=== PATIENT | male | born 1960 | race Caucasian/White ===

== ENCOUNTER → 2017-01-19 | Outpatient (CLI) | payer OTHER ==
[~2017-01-19] MED LIST: ALPRAZOLAM0.5 MG PO; BACTRIM D.S. TAB1 EA PO; NEURONTIN 400400 MG PO; NORCO 10-325 T1 EACH PO; PRILOSEC OTC20 MG PO; SPRYCEL100 MG PO; ZESTRIL40 MG PO
== END ==
LOC: RAD 08:56
DX: M54.2 Cervicalgia (principal); M54.5 Low back pain; M47.814 Spondylosis without myelopathy or radiculopathy, thoracic region; M47.14 Other spondylosis with myelopathy, thoracic region; M47.816 Spondylosis without myelopathy or radiculopathy, lumbar region; M47.812 Spondylosis without myelopathy or radiculopathy, cervical region
CPT/HCPCS: 72050; 72072; 72110

== ENCOUNTER 2017-03-01 21:30 | Inpatient (IN) | payer OTHER ==
[~2017-03-01 21:30] MED LIST changes: -PRILOSEC OTC20 MG PO
[2017-03-01 22:17] LABS: HEMOGLOBIN 15.3 gm/dl (14.0-17.5); RED BLOOD COUNT 4.57 M/UL (4.20-5.50); WHITE BLOOD COUNT 12.4 K/UL (4.5-11.0)
[2017-03-01 22:59] LABS: BUN/CREATININE RATIO 10 (0-10)
[2017-03-02] MEDS ORDERED: PRILOSEC OTC20 MG PO (06:25)
[2017-03-02 07:09] LABS: HEMOGLOBIN 15.4 gm/dl (14.0-17.5); RED BLOOD COUNT 4.67 M/UL (4.20-5.50)
[2017-03-02 07:10] LABS: WHITE BLOOD COUNT 7.4 K/UL (4.5-11.0)
[2017-03-02 07:40] LABS: BUN/CREATININE RATIO 12 (0-10)
[2017-03-02] MEDS ORDERED: SPRYCEL100 MG PO (18:22)
[2017-03-05] MEDS ORDERED: NORCO 10-325 T1 EACH PO (13:18)
== END 2017-03-05 13:57 | disposition home or self-care (01) | DRG 391 ==
LOC: ER1 21:30 → MED SURG 4 03-02 03:25 → ZEROF 03-02 03:25 → MED SURG 4 03-02 06:02
PROVIDERS: Family Medicine; ADMIT Internal Medicine
DX: K29.90 Gastroduodenitis, unspecified, without bleeding (principal); K85.90 Acute pancreatitis without necrosis or infection, unspecified; C91.10 Chronic lymphocytic leukemia of B-cell type not having achieved remission; I31.3 Pericardial effusion (noninflammatory); I10 Essential (primary) hypertension; K21.9 Gastro-esophageal reflux disease without esophagitis; G89.3 Neoplasm related pain (acute) (chronic); F17.210 Nicotine dependence, cigarettes, uncomplicated; F41.9 Anxiety disorder, unspecified; Z79.891 Long term (current) use of opiate analgesic; Z79.899 Other long term (current) drug therapy; Z80.9 Family history of malignant neoplasm, unspecified
CPT/HCPCS: 36415; 74000; 80053; 80061; 81001; 82150; 83690; 85025; 85027; 93005; 99283; J0360; J2405; J7030; J7050; Q9962

== ENCOUNTER 2017-04-29 18:36 | Emergency (ER) | payer OTHER ==
[~2017-04-29 18:36] MED LIST changes: +PRILOSEC OTC20 MG PO
== END 2017-04-29 19:50 | disposition home or self-care (01) ==
LOC: ER1 18:36
DX: M67.431 Ganglion, right wrist (principal); I10 Essential (primary) hypertension; M54.9 Dorsalgia, unspecified; G89.29 Other chronic pain; C95.90 Leukemia, unspecified not having achieved remission; F17.210 Nicotine dependence, cigarettes, uncomplicated; Z79.891 Long term (current) use of opiate analgesic; Z79.899 Other long term (current) drug therapy
CPT/HCPCS: 99283